=== PATIENT | male | born 1950 ===

== ENCOUNTER → 2017-05-07 | Day surgery (SDC) | payer OTHER ==
[2017-04-24 12:30] VITALS: BMI 28.0
[2017-05-01 13:50] VITALS: Ht 185.4 cm; Wt 97.7 kg
[~2017-05-07] VITALS: Ht 185.4 cm; Wt 97.7 kg
[~2017-05-07] MED LIST: ATROPINE SULFATE 0.1 MG/ML 5ML SYR IV PRN; CEFAZOLIN 2000MG IV PUSH 15 ML IV SCH; DEXAMETHASONE SOD INJ 4 MG/ML VIAL IV PRN; DEXAMETHASONE SOD INJ 4 MG/ML VIAL ONE; EpHEDrine SULFATE 50MG/5ML SYR ONE; EpHEDrine SULFATE INJ 50 MG/ML AMP IV PRN; EpINEphrine INJ 1MG/ML AMP 1 MG/ML AMP ONE; FENTANYL CITRATE INJ 50 MCG/1 ML 2 ML VIAL IV PRN; FENTANYL CITRATE INJ 50 MCG/1 ML 2 ML VIAL ONE; KETO10TA PO; KETOROLAC TROMETHAMINE 30 MG/ML VIAL IV. PRN; KETOROLAC TROMETHAMINE 30 MG/ML VIAL ONE; LABETALOL HCL IV 5 MG/ML 20ML IV PRN; LACTATED RINGER'S 1000ML 1,000 ML IV SCH; LIDOCAINE HCL 2% 2 ML VIAL (20MG/ML) ONE; METOCLOPRAMIDE HCL INJ 5 MG/ML 2 ML VIAL IV PRN; MIDAZOLAM HCL 1 MG/ML 2ML VIAL ONE; MoRPHine SULFATE 10 MG/ML CARP/VIAL IV PRN; ONDANSETRON INJ 2 MG/ML 2 ML VIAL IV PRN; ONDANSETRON INJ 2 MG/ML 2 ML VIAL ONE; OXYC-57 PO; OXYCODONE/ACETAMINOPHEN 5-325 TAB PO PRN; PHENYLEPHRINE 100MCG/ML 5ML SYR IV PRN; PROPOFOL IV EMULSION 10 MG/ML 20 ML VIAL IV ONE; ROPIVACAINE 0.5% 5 MG/ML 30 ML VIAL ONE; SODIUM CHLORIDE 0.9% 1000ML 1,000 ML IV SCH; VALS-57 PO
--- NOTE | 2017-05-07 06:52 | History & Physical Bridge - [place] ---
H&P Re-Evaluation Bridge Note: I have examined the patient, reviewed the History & Physical and in the interval since the performance of the History & Physical I have noted the following changes of clinical significance: No changes noted
--- NOTE | 2017-05-07 07:48 | [facility] Post Operative Brief Note ---
Immediate Operative Summary Operative Date May 07, 2017. Pre-Operative Diagnosis Left knee medial meniscus tear and degenerative joint disease + Chronic ACL Tear Post-Operative Diagnosis Same as pre-op Procedure(s) Performed Left knees arthroscopy, partial meniscectomy and chrondoplasty Surgeon Dr. Arias Tube Puller Surgeon(s) Joey BOLES Estimated Blood Loss Minimal Findings Consistent with Post-Op Diagnosis Specimens None Drains None Anesthesia Type General Complication(s) none Disposition Accompanied Pt To Recovery: no Disposition: Recovery Room / PACU
--- NOTE | 2017-05-07 07:54 | Discharge Instructions-SurgCtr ---
Discharge Instructions Date of Service May 07, 2017. Visit Reason for Visit: Left Knee Medial Meniscus Tear, Osteoarthritis Discharge Discharge Diagnosis / Problem: left knee medial meniscus tear Discharge Goals Goal(s): Decrease discomfort, Improve function, Therapeutic intervention Activity Recommendations Activity Limitations: per Instructions/Follow-up section Weightbearing Status: Left weightbearing (as tolerated) Anesthesia . Post Anesthesia Instructions: If you have had General Anesthesia or IV Sedation: * Do not drive today. * Resume driving when surgeon permits. * Do not make important decisions or sign legal documents today. * Call surgeon for: 1. Temperature elevations greater than 101 degrees F. 2. Uncontrollable pain. 3. Excessive bleeding. 4. Persistent nausea and vomiting. 5. Medication intolerance (nausea, vomiting or rash). * For nausea and vomiting use only clear liquids such as: tea, soda, bouillon until nausea subsides, then gradually increase diet as tolerated. * If you have any concerns or questions, call your surgeon's office. If physician is unavailable and it is an emergency, call 911 or go to the nearest emergency room. . Instructions / Follow-Up Instructions / Follow-Up MEDICATIONS: * Resume previous medications unless instructed otherwise by your surgeon. * Always take pain medication on a full stomach or with food to avoid upset stomach. * Do not drink alcohol or drive while taking narcotics. * Ibuprofen or Tylenol may be taken if narcotic not needed. No ibuprofen while taking toradol SPECIAL CARE INSTRUCTIONS: __ None _x_ Keep extremity elevated and iced x 48 hours; apply ice 20-30 minutes 8-10 times/day. May remove at night. __ Crutches __ May discard when able __ Brace/Post-op shoe __ 24 hrs/day __ Remove at night _x_ Dressing __ Maintain until seen in office, may shower with plastic over site _x_ Remove dressings in 24-48 hours and then may shower _x_ Cover incisions with band-aids after showering __ Do not remove steri-strips Call physician if chills or temperature rises above 102 degrees or pain unrelieved by prescribed pain medications. Office [phone] follow up in 2 weeks Diet Recommendations Home Diet: resume previous diet Procedures Procedures Performed: Left knees arthroscopy, partial meniscectomy and chrondoplasty Pending Studies Studies pending at discharge: no Medical Emergencies . Who to Call and When: Medical Emergencies: If at any time you feel your situation is an emergency, please call 911 immediately. . Non-Emergent Contact Non-Emergency issues call your: Surgeon . . "Provider Documentation" section prepared by Adrian Collazo. .
--- NOTE | 2017-05-07 08:18 | OPERATIVE REPORT ---
DATE OF OPERATION: 05/07/2017 SURGEON STAFF: Sony Pritchett MD. FINISH PATCHER: FREIDA Padilla. PREOPERATIVE DIAGNOSES: 1. 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 2. Left knee degenerative medial meniscus tear. 3. Left knee degenerative joint disease. POSTOPERATIVE DIAGNOSES: Same. PROCEDURE PERFORMED: 1. Left knee exam under anesthesia. 2. Left knee diagnostic arthroscopy. 3. Left knee arthroscopic partial medial meniscectomy. 4. Left knee chondroplasty medial femoral condyle. 5. Left knee chondroplasty of the patella. COMPLICATIONS: None. ESTIMATED BLOOD LOSS: Minimal. TOURNIQUET TIME: 24 minutes at 300 mmHg. OPERATIVE INDICATIONS: The patient is a 66-year-old fairly active gentleman who has a long history of a left knee problem dating back to the late 1960s. He had an ACL injury and had some type of open surgery done at that time. He did pretty well, but over the past several months to a year he has developed persistent pain, discomfort and instability in his knee and catching and locking mechanical symptoms. He has failed conservative treatment. X-rays revealed fairly mild DJD. The patient elected to proceed with the procedure surgical treatment. His exam and findings were consistent with chronic ACL tear and likely a degenerative meniscus tear. OPERATIVE FINDINGS: Examination under anesthesia of the left knee revealed minimal effusion. His range of motion is 0-135. A little bit of soft endpoint to his Stephanie, but not much translation and no pivot. No varus or valgus instability. Giorgi did cause some mechanical clicking. There was no posterolateral rotatory instability. ARTHROSCOPIC FINDINGS: Arthroscopic findings revealed no significant knee effusion. He had some grade 2 changes of the patella. The trochlea showed some age-related changes. In the intercondylar notch, the ACL was torn and scarred down to the PCL. There was an empty lateral wall. The PCL was intact. In the medial compartment there was a complex degenerative tear of the posterior horn of the medial meniscus. There was extensive tearing of the medial meniscus with a bucket handle component. He had grade 3 changes of the medial femoral condyle and grade 2 of the medial tibial plateau. In the lateral compartment, there were some age-related changes to the meniscus and cartilage but no major tears. OPERATIVE PROCEDURE: The patient taken to the operating room, identified and placed on the operating table in supine position. All contact areas were appropriately padded. IV antibiotics were provided by anesthesia team. A general anesthetic was implemented by anesthesia team. A left thigh tourniquet was then placed. Left knee was then examined under anesthesia with findings as described above. Left leg was then prepped and draped in usual sterile fashion. Left leg was elevated and exsanguinated with an Esmarch and tourniquet was placed at 300 mmHg. Routine left knee arthroscopy was then performed through typical anteromedial and anterolateral portals. A superolateral outflow portal was established for outflow. Attention was then drawn to the medial meniscus. With the use of motorized and hand controlled instruments, a partial medial meniscectomy was then performed. We resected degenerative portion of the meniscus as well as the bucket handle component. By the time we were done, essentially the entire posterior horn was removed. The shaver was then used to debride the loose cartilage at the end of the medial femoral condyle. Attention was then drawn to the patellofemoral joint. With the use of the shaver, the loose cartilage in the undersurface of the patella was then debrided back to stable tissue. Once this was complete, the arthroscopic instruments were then placed throughout the knee joint. All extraneous debris was removed. The arthroscopic instruments were then removed from the joint and the portals were closed with 3-0 Prolene suture in a simple fashion. The knee was injected with 30 mL of 0.5% ropivacaine with epinephrine and 30 mg of Toradol. Sterile dressing with Xeroform, 4 x 4, sterile cast padding and Jabier bandage were applied. The tourniquet was then let down for a tourniquet time of 24 minutes. The patient then brought out of general anesthesia and transferred to the recovery room in stable condition. The patient tolerated the procedure without complications. All needle and sponge counts were correct at the end of the operation. I attest to the content of the Intraoperative Record and any orders documented therein. Any exception s are noted below.
[2017-05-07 08:32] VITALS: TEMP 36.5
[2017-05-07 08:56] VITALS: BP 162/83; PULSE 56; O2SAT 100
--- NOTE | 2017-05-07 08:58 | Anesthesia Progress Nt - [facility] ---
Anesthesia Post Op Note Date & Time May 07, 2017 at 08:57 Vital Signs Pain Intensity: 0 Vital Signs Past 12 Hours Date Time Temp Pulse Resp B/P (MAP) Pulse Ox O2 Delivery O2 Flow Rate FiO2 05/07/17 08:56 56 16 162/83 (109) 100 Room Air 05/07/17 08:32 36.5 58 16 161/89 (113) 98 Room Air 05/07/17 08:21 148/89 05/07/17 08:20 36.5 69 16 148/89 99 Room Air 05/07/17 08:18 58 13 98 05/07/17 08:18 59 13 05/07/17 08:16 146/93 05/07/17 08:13 62 14 05/07/17 08:13 63 14 99 05/07/17 08:11 155/86 05/07/17 08:08 66 14 100 05/07/17 08:08 65 14 05/07/17 08:07 75 21 100 05/07/17 08:07 71 21 05/07/17 08:06 144/81 05/07/17 08:02 70 17 05/07/17 08:02 69 17 100 05/07/17 08:01 135/79 05/07/17 07:57 81 21 100 05/07/17 07:57 82 21 05/07/17 07:56 144/71 05/07/17 07:53 154/83 05/07/17 07:52 36.9 87 16 154/83 98 Diffusion Mask 6 05/07/17 06:31 36.6 60 16 176/99 (124) 100 Room Air Notes Mental Status: alert / awake / arousable, participated in evaluation Pt Amnestic to Procedure: Yes Nausea / Vomiting: adequately controlled Pain: adequately controlled Airway Patency, RR, SpO2: stable & adequate BP & HR: stable & adequate Hydration State: stable & adequate Anesthetic Complications: no major complications apparent
== END | disposition home or self-care (01) ==
LOC: X.SURG 06:12
PROVIDERS: ATTEND Orthopaedic Surgery Sports Medicine
DX: M23.222 Derangement of posterior horn of medial meniscus due to old tear or injury, left knee (principal); M23.8X2 Other internal derangements of left knee; M17.12 Unilateral primary osteoarthritis, left knee; I10 Essential (primary) hypertension